=== PATIENT | female | born 1955 | race Caucasian/White ===

== ENCOUNTER 2017-08-27 15:04 | Emergency (ER) | payer MEDICARE, MEDICAID ==
[~2017-08-27] VITALS: Ht 152.4 cm; Wt 72.0 kg
[~2017-08-27 15:04] MED LIST: AMLODIPINE10 MG PO; ASPIRIN EC81 MG OR; AUGMENTIN875TAB OR; BABY ASPIRIN81 MG OR; CALCIUM D- OR; DEPAKOTE500 MG OR; FUROSEMIDE40 MG OR; KLOR-CON 1010 MEQ OR; KLOR-CON 1010 MEQ PO; LASIX20 MG OR; LASIX40 MG OR; LISINOPRIL10 MG PO; LOPRESSOR50 M1 PO; METOPROLOL50 MG OR; METOPROLOL50 MG PO; NAMENDA10 MG OR; NYSTAT/TRIAM EX; OMEPRAZOLE20 MG PO; OS-CAL 500+D PO; OYSTER SHELL C PO; SIMVASTATIN20 MG OR; ZESTRIL PO; ZOLOFT100 MG OR; ZYPREXA PO; ZYPREXA5 MG OR; ZYPREXA7.5 MG OR
[2017-08-27 16:05] LABS: HEMATOCRIT 41.8 % (37.0-47.0); HEMOGLOBIN 13.5 g/dl (12.0-16.0); IMMATURE GRANULOCYTES 0.2 % (0.0-1.0); MEAN CELL VOLUME 99.5 fL CALC (80.0-100.0); MEAN CORPUSCULAR HGB 32.1 pG CALC (26.0-32.0); MEAN CORPUSCULAR HGB CONC 32.3 g/L CALC (32.0-36.0); NEUT# 2.33 thou/uL (2.00-7.15); RED BLOOD COUNT 4.2 mill/uL (4.20-5.60); RED CELL DISTRI WIDTH 13.3 % (11.5-15.5)
[2017-08-27 16:24] LABS: ACT PARTIAL THROMBO TIME 25.6 SECONDS (20.0-32.5); PROTHROMBIN TIME 10.7 SECONDS (9.0-12.5)
[2017-08-27 16:25] LABS: ALBUMIN 3.6 g/dL (3.2-5.0); ALKALINE PHOSPHATASE 53 u/l (38-126); ANION GAP 14 (6-22 (CALC)); BILIRUBIN, TOTAL 0.5 mg/dL (0.0-1.4); BUN 16 mg/dL (7-17); BUN/CREATININE RATIO 20 (12-20 (CALC)); CALCIUM 9.7 mg/dL (8.4-10.2); CARBON DIOXIDE 35 mmol/l (22-30); CHLORIDE 102 mmol/l (95-108); CREATININE 0.8 mg/dL (0.5-1.0); GFR > 60 ML/MIN (>=60 (CALC)); GFR FOR AFR.AMER. > 60 ML/MIN (>=60 (CALC)); GLUCOSE 98 mg/dL (65-105); POTASSIUM 4.1 mmol/l (3.5-5.1); SGOT/AST 38 u/l (14-36); SGPT/ALT 34 u/l (9-52); SODIUM 146 mmol/l (137-146)
[2017-08-27 18:21] VITALS: BP 133/91
== END 2017-08-27 18:22 | disposition short-term general hospital (02) ==
LOC: ED 15:04
PROVIDERS: Emergency Medicine
DX: G45.9 Transient cerebral ischemic attack, unspecified (principal); R29.810 Facial weakness; I10 Essential (primary) hypertension; F03.90 Unspecified dementia, unspecified severity, without behavioral disturbance, psychotic disturbance, mood disturbance, and anxiety; R56.9 Unspecified convulsions; Z79.82 Long term (current) use of aspirin; R29.703 NIHSS score 3

== ENCOUNTER 2018-05-22 08:55 | Emergency (ER) | payer MEDICARE, MEDICAID ==
[~2018-05-22] VITALS: Ht 152.4 cm; Wt 75.0 kg
[2018-05-22] MEDS ORDERED: DEPAKOTE500 MG PO (11:05)
[2018-05-22] MEDS ORDERED: NORVASC5 M1 PO (11:05)
[2018-05-22] MEDS ORDERED: ASPIRIN CHEWABL81 MG PO (11:06)
[2018-05-22] MEDS ORDERED: LASIX 40 MG TAB40 MG PO (11:07)
[2018-05-22] MEDS ORDERED: LEVOTHYROXIN50 MCG PO (11:07)
[2018-05-22] MEDS ORDERED: OLANZAPINE5 MG PO (11:08)
[2018-05-22] MEDS ORDERED: OMEPRAZOLE20 M2 PO (11:09)
[2018-05-22] MEDS ORDERED: OYSCO 500500 MG PO (11:09)
[2018-05-22] MEDS ORDERED: POTASSIUM CHLO10 MEQ PO (11:10)
[2018-05-22] MEDS ORDERED: LISINOPRIL10 M1 PO (11:11)
[2018-05-22] MEDS ORDERED: SERTRALINE50 MG PO (11:11)
[2018-05-22] MEDS ORDERED: LOPRESSOR50 M1 PO (11:11)
[2018-05-22] MEDS ORDERED: SIMVASTATIN20 MG PO (11:12)
[2018-05-22] MEDS ORDERED: AMOXICILLIN500 MG PO (11:37)
[2018-05-22] MEDS ORDERED: NAPROSYN500 MG PO (11:37)
[2018-05-22 11:43] VITALS: BP 128/72
== END 2018-05-22 11:43 | disposition home or self-care (01) ==
LOC: ED 08:55
DX: M19.042 Primary osteoarthritis, left hand (principal); I10 Essential (primary) hypertension; E03.9 Hypothyroidism, unspecified; K21.9 Gastro-esophageal reflux disease without esophagitis

== ENCOUNTER 2019-09-05 06:43 | Emergency (ER) | payer MEDICARE, MEDICAID ==
[~2019-09-05] VITALS: Ht 152.4 cm; Wt 69.0 kg
[~2019-09-05 06:43] MED LIST changes: +AMOXICILLIN500 MG PO; +ASPIRIN CHEWABL81 MG PO; +DEPAKOTE500 MG PO; +LASIX 40 MG TAB40 MG PO; +LEVOTHYROXIN50 MCG PO; +LISINOPRIL10 M1 PO; +NAPROSYN500 MG PO; +NORVASC5 M1 PO; +OLANZAPINE5 MG PO; +OMEPRAZOLE20 M2 PO; +OYSCO 500500 MG PO; +POTASSIUM CHLO10 MEQ PO; +SERTRALINE50 MG PO; +SIMVASTATIN20 MG PO
[2019-09-05 08:05] VITALS: BP 155/72
== END 2019-09-05 08:05 | disposition home or self-care (01) ==
LOC: ED 06:43
PROC: 0CQ0XZZ Repair Upper Lip, External Approach (ICD-10-PCS; principal; 2019-09-05)
DX: S01.511A Laceration without foreign body of lip, initial encounter (principal); S00.83XA Contusion of other part of head, initial encounter; F79 Unspecified intellectual disabilities; I10 Essential (primary) hypertension; E03.9 Hypothyroidism, unspecified; W06.XXXA Fall from bed, initial encounter; Y92.122 Bedroom in nursing home as the place of occurrence of the external cause

== ENCOUNTER 2019-09-16 10:44 | Emergency (ER) | payer MEDICARE, MEDICAID ==
[~2019-09-16] VITALS: Ht 152.4 cm; Wt 85.0 kg
[2019-09-16 11:10] VITALS: BP 118/62
== END 2019-09-16 11:10 | disposition short-term general hospital (02) ==
LOC: ED 10:44
DX: Z48.00 Encounter for change or removal of nonsurgical wound dressing (principal)

== ENCOUNTER 2022-06-13 08:15 | Emergency (ER) | payer MEDICARE, MEDICAID ==
[~2022-06-13] VITALS: Ht 152.4 cm; Wt 68.1 kg
[2022-06-13] VITALS (8 sets, daily range): BP systolic 156–192; BP diastolic 73–95
[2022-06-13] MEDS ORDERED: CALCIUM500 M5 PO (09:05)
[2022-06-13 09:35] LABS: HEMATOCRIT 36.8 % (37.0-47.0); HEMOGLOBIN 12.6 g/dl (12.0-16.0); IMMATURE GRANULOCYTES 0.2 % (0.0-5.0); MEAN CELL VOLUME 92.5 fL CALC (80.0-100.0); MEAN CORPUSCULAR HGB 31.7 pG CALC (26.0-32.0); MEAN CORPUSCULAR HGB CONC 34.2 g/dL CAL (32.0-36.0); NEUT# 3.48 thou/uL (2.00-7.15); RED BLOOD COUNT 3.98 mill/uL (4.20-5.60); RED CELL DISTRI WIDTH 13.1 % (11.5-15.5)
[2022-06-13 09:38] LABS: ALBUMIN 3.3 g/dL (3.2-5.0); ALKALINE PHOSPHATASE 49 u/l (38-126); ANION GAP 9 (6-22 (CALC)); BILIRUBIN, TOTAL 0.3 mg/dL (0.0-1.4); BUN 12 mg/dL (8-23); BUN/CREATININE RATIO 18 (12-20 (CALC)); CARBON DIOXIDE 33 mmol/l (22-30); CHLORIDE 101 mmol/l (95-108); CREATININE 0.7 mg/dL (0.5-1.0); GFR FOR AFR.AMER. > 60 ML/MIN (>=60 (CALC)); GFR OTHER RACES > 60 ML/MIN (>=60 (CALC)); POTASSIUM 3.4 mmol/l (3.5-5.1); SGOT/AST 22 u/l (9-36); SODIUM 139 mmol/l (137-146); TOTAL PROTEIN 6.5 g/dL (6.3-8.2)
[2022-06-13 10:06] LABS: URINE BILIRUBIN - DIPSTICK NEGATIVE (NEGATIVE); URINE BLOOD DIPSTICK TRACE-INTACT (NEGATIVE); URINE COLOR YELLOW; URINE GLUCOSE - DIPSTICK NEGATIVE (NEGATIVE); URINE KETONE NEGATIVE (NEGATIVE); URINE LEUK ESTERASE NEGATIVE (NEGATIVE); URINE PH 6.5 (4.5-8.0); URINE PROTEIN - DIPSTICK NEGATIVE (NEG-TRACE)
[2022-06-13 10:08] LABS: URINE NITRITE - DIPSTICK NEGATIVE (Negative)
== END 2022-06-13 10:36 | disposition home or self-care (01) ==
LOC: ED 08:15
PROVIDERS: Family Medicine
DX: R53.1 Weakness (principal); I10 Essential (primary) hypertension; E03.9 Hypothyroidism, unspecified; E78.5 Hyperlipidemia, unspecified; F79 Unspecified intellectual disabilities; K21.9 Gastro-esophageal reflux disease without esophagitis; M19.90 Unspecified osteoarthritis, unspecified site